=== PATIENT | male | born 1960 | race Caucasian/White ===

== ENCOUNTER 2018-01-16 22:24 | Emergency (ER) | payer MEDICAID ==
[~2018-01-16] VITALS: Ht 182.9 cm; Wt 100.0 kg
[2018-01-16 22:39] VITALS: BP 191/122
== END 2018-01-17 00:01 | disposition home or self-care (01) ==
LOC: ER 22:25
DX: S50.811A Abrasion of right forearm, initial encounter (principal); T67.7XXA Heat edema, initial encounter; N50.82 Scrotal pain; I10 Essential (primary) hypertension; G89.29 Other chronic pain; F17.200 Nicotine dependence, unspecified, uncomplicated; X99.1XXA Assault by knife, initial encounter; Y93.89 Activity, other specified; Y92.89 Other specified places as the place of occurrence of the external cause; Y99.8 Other external cause status
CPT/HCPCS: 99281